=== PATIENT | male | born 1980 | race Caucasian/White ===

== ENCOUNTER 2017-04-12 06:28 | Day surgery (SDC) | payer OTHER, SELFPAY ==
[2017-04-12] VITALS (7 sets, daily range): BP systolic 116–135; BP diastolic 79–86; PULSE 57–69; RESP 16–19; TEMP 36.3–36.7; O2SAT 93–97; BMI 26.1
--- NOTE | 2017-04-12 07:49 | PCM.DC.GS ---
Discharge Diet: No Restrictions Discharge Activity: May not drive while taking narcotic pain medications. May shower in (days): 1 Additional Activity Instructions:: will reassess for returning to work at 10-12 day f/u appt- plan for 2 weeks off Call your doctor if your incision/area has: Continuous Slow Oozing, Sudden Increased Bleeding, Increased Pain/ Swelling, Increased Redness, Foul Smelling Discharge, Swelling at the incision site Call your doctor if you observe: Fever of 101 or Higher Additional Instructions: ok to take ibu/advil between doses of norco, no tylenol as tylenol is in norco. To avoid constipation take stool softener daily with pain meds (ie colace). Allergies/Adverse Reactions: Allergies No Known Allergies Allergy (Verified 04/09/17 13:58) Medications to take at Discharge Hydrocodone Bitart/Apap 5-325 [[place] 5MG-325MG] 1 - 2 tablet PO Q4H PRN PRN 3 Days #20 tablet 04/12/17 The following prescriptions were given: Hydrocodone Bitart/Apap 5-325 [[place] 5MG-325MG] 1 - 2 tablet PO Q4H PRN PRN 3 Days #20 tablet PRN Reason: Pain Primary Care Physician: Jeromy Alegre MD [Primary Care Provider] - Please Follow Up With: Candida Fuentes MD - after 5pm/weekends call [phone] with any concerns When: call tomorrow office for appt in 10-12 days
[2017-04-12] MEDS: Cefazolin 2 GM in 0.9% Normal Saline 100 ML IV (07:52)
--- NOTE | 2017-04-12 07:53 | DCINST_ITS ---
Discharge Diet: No Restrictions Discharge Activity: May not drive while taking narcotic pain medications. May shower in (days): 1 Additional Activity Instructions:: will reassess for returning to work at 10-12 day f/u appt- plan for 2 weeks off Call your doctor if your incision/area has: Continuous Slow Oozing, Sudden Increased Bleeding, Increased Pain/ Swelling, Increased Redness, Foul Smelling Discharge, Swelling at the incision site Call your doctor if you observe: Fever of 101 or Higher Additional Instructions: ok to take ibu/advil between doses of norco, no tylenol as tylenol is in norco. To avoid constipation take stool softener daily with pain meds (ie colace). Allergies/Adverse Reactions: Allergies No Known Allergies Allergy (Verified 04/09/17 13:58) Medications to take at Discharge Hydrocodone Bitart/Apap 5-325 [[place] 5MG-325MG] 1 - 2 tablet PO Q4H PRN PRN 3 Days #20 tablet 04/12/17 The following prescriptions were given: Hydrocodone Bitart/Apap 5-325 [[place] 5MG-325MG] 1 - 2 tablet PO Q4H PRN PRN 3 Days #20 tablet PRN Reason: Pain Primary Care Physician: Jeromy Alegre MD [Primary Care Provider] - Please Follow Up With: Candida Fuentes MD - after 5pm/weekends call [phone] with any concerns When: call tomorrow office for appt in 10-12 days
--- NOTE | 2017-04-12 08:00 | CYST_PTH ---
PATIENT: TAMELA HURST [place] [facility] [place][id number] AGE/SX: 37/M ROOM: RE04/12/[address]: Dr. Candida Fuentes MD : 1980 BED: DIS: 04/12/2017 SPEC #: [id number] RECD: 04/12/17 11:36 STATUS: ADRIANO RICHARD #: [id number] PRADIP: 04/12/17 08:[address]: Candida Fuentes DEPT: SURGICAL PATHOLOGY RECD BY: Tyron Pelletier ENTERED: 04/12/17 13:20 SP TYPE: Cyst OTHR DR: Dr. Jeromy Alegre MD Tissues: CYST Procedures: Surgery Specimen Level III HEADER OPERATION: Excision cyst, right medial gluteal cheek PRE-OP DIAGNOSIS: Neoplasm, right medial inferior gluteal cheek TISSUE SUBMITTED: Sebaceous cyst and overlying excess skin, right medial inferior gluteal cheek MICROSCOPIC DIAGNOSIS Cyst and overlying excess skin, right medial inferior gluteal area, excision: Epidermal inclusion cyst. Pieces of skin, no pathologic diagnosis. CHRISTAL:zina 04/13/17 MICROSCOPIC DESCRIPTION Slides are reviewed. GROSS DESCRIPTION Received in fixative is one container labeled with the patient's name and designated cyst and overlying excess skin, right medial inferior gluteal. The specimen consists of a cullen-white cyst measuring 7 x 5 x 4.5 cm and weighing 59 gm. The outer surface of cyst is slightly ragged and inked black. The cyst wall is thin and cyst is filled with cullen-white sebum-like material. The cyst wall measures 0.1 to 0.2 cm in thickness. Also present in the container are two pieces of cullen-white skin measuring 12 x 1.5 x 0.2 cm and 2 x 0.5 x 0.2 cm. Personal Banking Representative sections are submitted in two cassettes as follows: 1 ? cyst, 2 ? skin. / CHRISTAL:zina 04/12/17 TC:5 CPT: 70245
--- NOTE | 2017-04-12 09:01 | OP.PCM_ITS ---
Report of Operation Date of Procedure: 04/12/17 Pre-Operative Diagnosis: right inferior buttocks subcutaneous mass Post-Operative Diagnosis: right inferior buttocks sebaceous cyst Surgery/Procedure Performed:: Excision of a right inferior buttocks sebaceous cyst Type of Anesthesia:: General Anesthesiologist: Km Andrade Special Medications: Ancef 2 g IV ?1 Estimated Blood Loss (mL): <10 cc Fluids Replaced: 1000 cc Description of Procedure: Patient was brought to the room. Correct patient, procedure, site, positioning , special, was verified prior to beginning procedure. General anesthesia was induced. Patient was placed prone on the operating table with appropriate padding. The right inferior buttocks was prepped and draped in usual sterile fashion with Betadine. A transverse incision was made along the lines of the sarita in the skin with a 15 blade scalpel. Patient's mass was identified as a sebaceous cyst. This was dissected from the surrounding skin and subcutaneous fat with a hemostat and electrocautery. Electrocautery was used for hemostasis. The wound was irrigated with saline. The excess skin from the growth of the sebaceous cyst was removed to allow the skin to come together without tension. The sebaceous cyst measured 7 cm x 5.5 cm by 3 cm and was sent with the excess skin to pathology. The incision was closed with 3-0 Vicryl interrupted subdermal sutures and 3-0 nylon vertical mattress sutures. The incision was dressed with Tegaderm and gauze/tape. Patient was extubated. Patient tolerated procedure well and was taken to the postanesthesia care unit in stable condition. - Complications None
[2017-04-12] MEDS: Ipratropium/Albuterol Sulfate 3 ML AMPUL.NEB INHALATION (09:48)
== END 2017-04-12 11:12 | disposition home or self-care (01) ==
LOC: SDC 06:29 → AC 06:30
PROVIDERS: Family Provider Family Medicine; PCP Family Medicine; Visit Provider Surgery
PROC: (CPT 11406; principal; 2017-04-12 07:45)
DX: L72.0 Epidermal cyst (principal)
CPT/HCPCS: 00300; 11406; 88304; 94640; J7120; J2405

== ENCOUNTER → 2020-04-08 10:42 | Outpatient (CLI) | payer OTHER, SELFPAY ==
[2017-04-23 10:21] VITALS: BMI 26.1
--- NOTE | 2020-04-08 10:47 | RAD_ITS ---
STUDY: X-RAY - RIGHT CALCANEUS REASON FOR EXAM: Heel pain for about a month, no specific injury. TECHNIQUE: 2 view(s) of the calcaneus were obtained. COMPARISON: None. FINDINGS: Normal visualized calcaneus. RAD/Calcaneus min 2 Views IMPRESSION: Normal x-ray examination of the right calcaneus. Electronically Signed: Noman Forde MD at 11:48 EST Tel , Service support ,
== END ==
PROVIDERS: PCP Family Medicine; Referring Provider Family Medicine; Visit Provider Family Medicine
DX: M79.671 Pain in right foot (principal)
CPT/HCPCS: 73650